=== PATIENT | female | born 1980 | race Hispanic/Latino ===

== ENCOUNTER 2022-09-27 05:27 | Outpatient (CLI) | payer OTHER ==
[~2022-09-27] VITALS: Ht 162.6 cm; Wt 86.4 kg
[~2022-09-27 05:27] MED LIST: BIRTH CONTROL PILL; DEPO PROVERA IM; FERR325C PO; HYDR1TAB75 PO; IBP800T PO; KETO-22 PO; MGS40T PO; ONDAN4ODT PO; PHEN-452 PO; PHEN37.555 PO; PNT40TEC PO
[2022-09-27] MEDS ORDERED: NF-VYVAN20 PO (10:48)
[2022-09-27] MEDS ORDERED: CHOL100048 PO (10:48)
[2022-09-27] MEDS ORDERED: FLUO10CA29 PO (10:48)
== END 2022-09-27 11:08 | disposition home or self-care (01) ==
LOC: PREOP 05:27
PROVIDERS: ATTEND Otolaryngology Otolaryngology/Facial Plastic Surgery
DX: Z01.818 Encounter for other preprocedural examination (principal)

== ENCOUNTER 2022-10-04 07:47 | Day surgery (SDC) | payer OTHER ==
[2022-10-04] VITALS (12 sets, daily range): BP systolic 117–132; BP diastolic 67–88
[~2022-10-04] VITALS: Ht 162.6 cm; Wt 86.4 kg
[~2022-10-04 07:47] MED LIST changes: +CHOL100048 PO; +FLUO10CA29 PO; +NF-VYVAN20 PO
[2022-10-04] MEDS: LACTATED RINGERS 1,000 ML IV PRN ×2 (08:36→10:20)
[2022-10-04 08:57] LABS: BASOPHILS % (AUTO) 1 % (0-10); EOSINOPHILS # (AUTO) 0.1 10^3/uL (0.0-0.3); EOSINOPHILS % (AUTO) 1 % (0-10); HEMATOCRIT 42 % (35-52); HEMOGLOBIN 14.2 g/dL (11.5-16.0); LYMPHOCYTES # (AUTO) 1.4 10^3/uL (1.0-4.0); LYMPHOCYTES % (AUTO) 25 % (12-44); MEAN CORPUSCULAR HEMOGLOBIN 31 pg (25-34); MEAN CORPUSCULAR HGB CONC 34 g/dL (32-36); MEAN CORPUSCULAR VOLUME 91 fL (80-99); MEAN PLATELET VOLUME 10.1 fL (9.0-12.2); MONOCYTES # (AUTO) 0.4 10^3/uL (0.0-1.0); MONOCYTES % (AUTO) 7 % (0-12); NEUTROPHILS # (AUTO) 3.6 10^3/uL (1.8-7.8); NEUTROPHILS % (AUTO) 66 % (42-75); PLATELET COUNT 212 10^3/uL (130-400); WHITE BLOOD COUNT 5.5 10^3/uL (4.3-11.0)
--- NOTE | 2022-10-04 08:59 | Progress Note-Pre Operative ---
Pre-Operative Progress Note Date of Available H&P: Oct 04, 2022 Date H&P Reviewed: Oct 04, 2022 Time H&P Reviewed: 09:00 History & Physical: H&P Reviewed, Patient Examed, No changes noted Changes from last HP none Pre-Operative Diagnosis: Rec/Chronic Tons SORAYA CUNHA MD Oct 04, 2022 08:59
[2022-10-04] MEDS ORDERED: NS IV 1000 ML 1,000 ML IV SCH (09:00)
[2022-10-04] MEDS ORDERED: oxyCODONE 5 MG/5 ML ORAL SOLN 5 ML UDC PO PRN (09:00)
[2022-10-04] MEDS ORDERED: ACETAMINOPHEN 325 MG/10.15 ML ORAL SOLN UDC PO PRN (09:00)
--- NOTE | 2022-10-04 09:00 | Progress Note-Post Operative ---
Post-Operative Progess Note Surgeon (s)/Polisher And Sander (s) Surgeon SORAYA CUNHA MD Polisher And Sander n/a Pre-Operative Diagnosis Rec/Chronic Tons Post-Operative Diagnosis same Post-Op Procedure Note Date of Procedure: Oct 04, 2022 Name of Procedure Performed: Tonsillectomy Description & Findings Description and Findings: n/a Anesthesia Type get Estimated Blood Loss minimal Packing none. Specimen(s) collected/removed tonsils SORAYA CUNHA MD Oct 04, 2022 09:00
[2022-10-04] MEDS ORDERED: proPOfol 200 MG/20 ML (DIPRIVAN) VIAL IV ONE (09:13)
[2022-10-04] MEDS ORDERED: NEOSTIGMINE 1 MG/1ML 10 ML VIAL ONE (09:13)
[2022-10-04] MEDS ORDERED: ROCURONIUM 50 MG/5 ML (ZEMURON) VIAL IV ONE (09:13)
[2022-10-04] MEDS ORDERED: ONDANSETRON 4 MG/2 ML (SDV) Z0FRAN ONE (09:13)
[2022-10-04] MEDS ORDERED: MIDAZOLAM INJ 2 MG/2 ML VIAL ONE (09:13)
[2022-10-04] MEDS ORDERED: LIDOCAINE PF 2% 5 ML VIAL ONE (09:13)
[2022-10-04] MEDS ORDERED: fentaNYL INJECTION 100 MCG/2 ML VIAL ONE (09:13)
[2022-10-04] MEDS ORDERED: GLYCOPYRROLATE INJ 0.2 MG/ML 2 ML VIAL ONE (09:13)
[2022-10-04] MEDS ORDERED: dexAMETHasone INJ 10 MG/ML 1 ML VIAL ONE ×2 (09:13→09:42)
[2022-10-04] MEDS ORDERED: SEVOFLURANE (ULTANE) 15 ML INHAL SOLN ONE (09:51)
[2022-10-04] MEDS ORDERED: morphine INJ 10 MG/ML 1ML (SYR OR VIAL) IVP ONE (10:30)
[2022-10-04] MEDS ORDERED: HYDROmorphone INJECTION 2 MG/ML VIAL IV ONE (10:30)
[2022-10-04] MEDS ORDERED: ONDANSETRON 4 MG/2 ML (SDV) Z0FRAN IVP PRN (10:30)
--- NOTE | 2022-10-04 12:19 | Anesthesia-General Post-Op ---
General Patient Condition Mental Status/LOC: Same as Preop Cardiovascular: Satisfactory Nausea/Vomiting: Absent Respiratory: Satisfactory Pain: Controlled Complications: Absent Post Op Complications Complications None Follow Up Care/Instructions Patient Instructions None needed. Anesthesia/Patient Condition Patient Condition Patient was seen after the procedure and she was doing well, no complaints, stable vital signs, no apparent adverse anesthesia problems. No complications reported per nursing. JELLY ROOT DO Oct 04, 2022 12:19
== END 2022-10-04 13:20 | disposition home or self-care (01) ==
LOC: SDC 07:47
PROVIDERS: ATTEND Otolaryngology Otolaryngology/Facial Plastic Surgery
DX: J03.80 Acute tonsillitis due to other specified organisms (principal); J35.01 Chronic tonsillitis; B96.89 Other specified bacterial agents as the cause of diseases classified elsewhere; Z28.310 Unvaccinated for COVID-19
CPT/HCPCS: 36415; 84703; 85025; 87081